=== PATIENT | female | born 1995 | race Caucasian/White ===

== ENCOUNTER → 2020-09-20 | Outpatient (CLI) | payer OTHER | END | disposition home or self-care (01) | LOC: LAB SHORT 15:15 | DX: R07.0 Pain in throat (principal) | CPT/HCPCS: 87081 ==

== ENCOUNTER → 2021-01-21 | Outpatient (CLI) | payer OTHER | END | disposition home or self-care (01) | LOC: LAB 15:00 → LAB SHORT 15:00 | DX: M85.80 Other specified disorders of bone density and structure, unspecified site (principal) | CPT/HCPCS: 82306 ==

== ENCOUNTER → 2021-06-04 | Outpatient (CLI) | payer OTHER | LOC: LAB SHORT 15:06 | PROVIDERS: Registered Nurse Community Health | DX: Z12.4 Encounter for screening for malignant neoplasm of cervix (principal) | CPT/HCPCS: G0123 ==

== ENCOUNTER → 2021-09-19 | Outpatient (CLI) | payer OTHER ==
[2021-09-19 12:52] LABS: Source, Urine Voided
[2021-09-19 13:33] LABS: Appearance, Urine Hazy (Clear); Bilirubin, Urine Neg (Neg); Blood, Urine Neg (Neg); Color, Urine Yellow (P-Yellow); Glucose Qualitative, Urine Neg (Neg); Ketones, Urine Neg (Neg); Leukocyte Esterase, Urine Neg (Neg); Nitrite, Urine Neg (Neg); Protein, Urine Neg (Neg); Urobilinogen, Urine NORM (Normal)
[2021-09-19 14:00] LABS: Amorphous Light (0-Heavy); Bacteria Many /hpf; Red Blood Cells, Urine 0-2 /hpf (0-2); Squamous Epithelial Cells Mod /hpf (Few); White Blood Cells, Urine 0-2 /hpf (0-5)
[2021-09-19 15:45] LABS: Protein, Urine Random 19.9 mg/dL (0.0-11.9); Protein/Creat Ratio, Ur Random 0.2
== END | disposition home or self-care (01) ==
LOC: LAB 12:44 → LAB SHORT 12:44
PROVIDERS: Internal Medicine Nephrology
DX: I10 Essential (primary) hypertension (principal); I50.32 Chronic diastolic (congestive) heart failure; N18.32 Chronic kidney disease, stage 3b; Q24.9 Congenital malformation of heart, unspecified
CPT/HCPCS: 81001; 82570; 84156; 87086

== ENCOUNTER 2022-03-12 12:13 | Emergency (ER) | payer OTHER ==
[~2022-03-12] VITALS: Ht 149.9 cm; Wt 78.9 kg
[2022-03-12 12:46] LABS: BASOPHILS ABSOLUTE AUTO 0.04 K/mm3 (0.00-0.23); BASOPHILS PERCENT AUTO 0 % (0-2); EOSINOPHILS PERCENT AUTO 2 % (0-6); Hematocrit 35.8 % (33.0-51.0); Hemoglobin 11.6 g/dL (11.5-16.0); IMMATURE GRAN ABSOLUTE AUTO 0.05 K/mm3 (0.00-0.10); IMMATURE GRAN PERCENT AUTO 1 % (0-1); LYMPHOCYTES ABSOLUTE AUTO 1.36 K/mm3 (0.84-5.20); LYMPHOCYTES PERCENT AUTO 15 % (21-46); MONOCYTES ABSOLUTE AUTO 0.53 K/mm3 (0.16-1.47); MONOCYTES PERCENT AUTO 6 % (4-13); Mean Corpuscular HGB 27.3 pg (26.0-34.0); Mean Corpuscular HGB Conc 32.4 g/dL (31.5-36.5); Mean Corpuscular Volume 84 fL (80-100); Mean Platelet Volume 9.1 fL (9.1-12.4); NEUTROPHILS ABSOLUTE AUTO 6.84 K/mm3 (1.96-9.15); NEUTROPHILS PERCENT AUTO 76 % (41-73); Platelet Count 260 K/mm3 (150-400); RDW Coefficient Variation 13.6 % (11.7-14.2); RDW Standard Deviation 42.1 fL (35.1-46.3); Red Blood Cell Count 4.25 M/mm3 (3.80-5.20); White Blood Cell Count 9.02 K/mm3 (4.00-11.30)
[2022-03-12 13:13] LABS: Albumin, Blood 3.4 g/dL (3.4-5.0); Albumin/Globulin Ratio 0.9 (0.8-1.8); Bilirubin, Total 0.2 mg/dL (0.1-1.0); Bun/Creatinine Ratio 17.4 (12.0-20.0); Creatinine, Blood 1.32 mg/dL (0.40-1.00); Globulin, Blood 3.8 g/dL (2.2-4.0); Magnesium, Blood 1.9 mg/dL (1.6-2.4); Potassium, Blood 3.9 mmol/L (3.5-5.5); Total Protein, Blood 7.2 g/dL (6.4-8.2)
[2022-03-12 14:04] LABS: Source, Urine Clean Catch
[2022-03-12 14:13] LABS: Appearance, Urine Hazy (Clear); Bilirubin, Urine Neg (Neg); Blood, Urine Neg (Neg); Color, Urine Yellow (P-Yellow); Glucose Qualitative, Urine Neg (Neg); Ketones, Urine Neg (Neg); Leukocyte Esterase, Urine Neg (Neg); Nitrite, Urine Neg (Neg); Protein, Urine Neg (Neg); Specific Gravity, Urine 1.015 (1.003-1.022); Urobilinogen, Urine NORM (Normal)
[2022-03-12 14:21] LABS: Bacteria Mod /hpf; Red Blood Cells, Urine 0-2 /hpf (0-2); Squamous Epithelial Cells Few /hpf (Few); White Blood Cells, Urine 0-2 /hpf (0-5)
[2022-03-12 14:22] LABS: Amorphous Mod (0-Heavy)
[2022-03-12] MEDS ORDERED: BUSP10 PO (14:58)
[2022-03-12] MEDS ORDERED: ASPI81CH PO (14:58)
[2022-03-12] MEDS ORDERED: DRON2.5 PO (14:59)
[2022-03-12] MEDS ORDERED: DICY20 PO (14:59)
[2022-03-12] MEDS ORDERED: Calcium Carbon500 MG PO (14:59)
[2022-03-12] MEDS ORDERED: DIAZ10 PO (14:59)
[2022-03-12] MEDS ORDERED: NOVOLOG FL100 UNIT/3 SQ (15:00)
[2022-03-12] MEDS ORDERED: DULO60 PO (15:00)
[2022-03-12] MEDS ORDERED: FURO20 PO (15:00)
[2022-03-12] MEDS ORDERED: HYDHCL25 PO (15:00)
[2022-03-12] MEDS ORDERED: PRAV20 PO (15:01)
[2022-03-12] MEDS ORDERED: LEVE500 PO (15:01)
[2022-03-12] MEDS ORDERED: PANT40 PO (15:01)
[2022-03-12] MEDS ORDERED: VITB2 PO (15:01)
[2022-03-12] MEDS ORDERED: METO10 PO (15:01)
[2022-03-12] MEDS ORDERED: LACO50TA2 PO (15:01)
[2022-03-12] MEDS ORDERED: TIZA4 PO (15:02)
[2022-03-12] MEDS ORDERED: TOPI50 PO (15:02)
== END 2022-03-12 15:30 | disposition home or self-care (01) ==
LOC: ER 12:13
PROVIDERS: Student in an Organized Health Care Education/Training Program
DX: G40.909 Epilepsy, unspecified, not intractable, without status epilepticus (principal); Z88.8 Allergy status to other drugs, medicaments and biological substances; Z79.899 Other long term (current) drug therapy; Z79.82 Long term (current) use of aspirin; Z79.4 Long term (current) use of insulin
CPT/HCPCS: 36415; 71046; 80053; 81001; 83735; 84146; 85025; 96361; 96374; 96375; 96376; 99284-25; A9270; J1885; J2405; J7030

== ENCOUNTER → 2022-05-12 | Outpatient (CLI) | payer OTHER ==
[~2022-05-12] MED LIST: ASPI81CH PO; BUSP10 PO; Calcium Carbon500 MG PO; DIAZ10 PO; DICY20 PO; DRON2.5 PO; DULO60 PO; FURO20 PO; HYDHCL25 PO; LACO50TA2 PO; LEVE500 PO; METO10 PO; NOVOLOG FL100 UNIT/3 SQ; PANT40 PO; PRAV20 PO; TIZA4 PO; TOPI50 PO; VITB2 PO
[2022-05-12 16:27] LABS: Source, Urine Voided
[2022-05-12 17:35] LABS: Appearance, Urine Hazy (Clear); Bilirubin, Urine Neg (Neg); Blood, Urine 2+ (Neg); Color, Urine Yellow (P-Yellow); Glucose Qualitative, Urine Neg (Neg); Ketones, Urine Neg (Neg); Leukocyte Esterase, Urine Neg (Neg); Nitrite, Urine Neg (Neg); Protein, Urine Neg (Neg); Urobilinogen, Urine NORM (Normal)
[2022-05-12 17:53] LABS: Amorphous Mod (0-Heavy); Bacteria Mod /hpf; Squamous Epithelial Cells Many /hpf (Few); White Blood Cells, Urine 0-2 /hpf (0-5)
[2022-05-12 18:24] LABS: Protein, Urine Random 25.6 mg/dL (0.0-11.9); Protein/Creat Ratio, Ur Random 0.2
== END | disposition home or self-care (01) ==
LOC: LAB SHORT 14:00
PROVIDERS: Internal Medicine Nephrology
DX: N18.31 Chronic kidney disease, stage 3a (principal); Z94.1 Heart transplant status
CPT/HCPCS: 81001; 82570; 84156; 87086

== ENCOUNTER → 2022-12-18 | Outpatient (CLI) | payer OTHER | LOC: LAB 19:16 → LAB SHORT 19:16 | DX: N39.0 Urinary tract infection, site not specified (principal) | CPT/HCPCS: 87086 ==

== ENCOUNTER 2023-01-28 08:05 | Day surgery (SDC) | payer OTHER ==
[~2023-01-28] VITALS: Ht 149.9 cm; Wt 82.5 kg
[2023-01-28] MEDS ORDERED: ALEN70 (08:31)
[2023-01-28] MEDS ORDERED: ABILIFY MYCITE5 M2 (08:32)
[2023-01-28] MEDS ORDERED: Buspirone HCl15 MG PO (08:33)
[2023-01-28] MEDS ORDERED: LEVE500 PO ×3 (08:36→08:43)
[2023-01-28] MEDS ORDERED: Children's Clari5 MG PO (08:44)
[2023-01-28] MEDS ORDERED: ALLERCLEAR10 MG (08:45)
[2023-01-28] MEDS ORDERED: NEXPLANON68 MG (08:46)
[2023-01-28] MEDS ORDERED: ONDA4 PO (08:47)
[2023-01-28] MEDS ORDERED: PANT40 PO (08:48)
[2023-01-28] MEDS ORDERED: PRAV20 PO (08:48)
[2023-01-28] MEDS ORDERED: SIRO1 (08:49)
[2023-01-28] MEDS ORDERED: TACR1 PO (08:52)
[2023-01-28] MEDS ORDERED: Vitamin D1000 UNI1 PO (08:53)
[2023-01-28 10:36] VITALS: BP 109/75
== END 2023-01-28 10:36 | disposition home or self-care (01) ==
LOC: ORSCSDS 08:05 → ORD 01-29 09:15
PROVIDERS: Internal Medicine Gastroenterology
PROC: 0DB98ZX Excision of Duodenum, Via Natural or Artificial Opening Endoscopic, Diagnostic (ICD-10-PCS; principal; 2023-01-28 09:45)
PROC: 0DBE8ZX Excision of Large Intestine, Via Natural or Artificial Opening Endoscopic, Diagnostic (ICD-10-PCS; principal; 2023-01-28 09:45)
PROC: 0DB78ZX Excision of Stomach, Pylorus, Via Natural or Artificial Opening Endoscopic, Diagnostic (ICD-10-PCS; principal; 2023-01-28 09:45)
DX: R19.7 Diarrhea, unspecified (principal); K21.9 Gastro-esophageal reflux disease without esophagitis; R11.2 Nausea with vomiting, unspecified; K22.2 Esophageal obstruction; K57.30 Diverticulosis of large intestine without perforation or abscess without bleeding; R10.84 Generalized abdominal pain; N18.9 Chronic kidney disease, unspecified; G47.33 Obstructive sleep apnea (adult) (pediatric); G40.909 Epilepsy, unspecified, not intractable, without status epilepticus; Z94.1 Heart transplant status; Z79.899 Other long term (current) drug therapy; Z79.82 Long term (current) use of aspirin; E66.9 Obesity, unspecified; Z68.36 Body mass index [BMI] 36.0-36.9, adult; Z86.73 Personal history of transient ischemic attack (TIA), and cerebral infarction without residual deficits; F32.A Depression, unspecified
CPT/HCPCS: 88305; 88342; J2704; J7120

== ENCOUNTER → 2024-01-25 | Outpatient (CLI) | payer OTHER ==
[~2024-01-25] MED LIST changes: +ABILIFY MYCITE5 M2; +ALEN70; +ALLERCLEAR10 MG; +Buspirone HCl15 MG PO; +Children's Clari5 MG PO; +NEXPLANON68 MG; +ONDA4 PO; +SIRO1; +TACR1 PO; +Vitamin D1000 UNI1 PO
== END ==
LOC: LAB 17:00 → LAB SHORT 17:00
DX: R11.10 Vomiting, unspecified (principal); R19.7 Diarrhea, unspecified; R53.83 Other fatigue
CPT/HCPCS: 87015; 87045; 87046; 87205; 87899

== ENCOUNTER → 2025-01-05 | Outpatient (CLI) | payer OTHER ==
[2025-01-05 20:13] LABS: Bacterial Vaginosis PCR Negative (NEGATIVE); Candida Group, PCR NOT DETECTED (NOT DETECT); Candida glabrata-krusei, PCR NOT DETECTED (NOT DETECT)
[2025-01-08 14:34] LABS: C. TRACHOMATIS BY TMA,THINPREP Negative (Negative); N. GONORRHOEAE BY TMA,THINPREP Negative (Negative)
== END ==
LOC: LAB 18:17 → LAB SHORT 18:17
PROVIDERS: General Practice
DX: Z01.419 Encounter for gynecological examination (general) (routine) without abnormal findings (principal); N89.8 Other specified noninflammatory disorders of vagina
CPT/HCPCS: 81515; 87491; 87591